=== PATIENT | female | born 1980 | race Caucasian/White ===

== ENCOUNTER 2022-06-13 08:43 | Emergency (ER) | payer BC, OTHER ==
[2022-06-13] MEDS ORDERED: Amoxicillin/Clavulanate K 875-125 MG Tab PO ONE ×2 (08:44→09:06)
[2022-06-13] MEDS ORDERED: Amoxicillin/Clavulanate K 875-125 MG Tab ONE (09:13)
== END 2022-06-13 09:19 | disposition home or self-care (01) ==
LOC: DL.ED 08:43
DX: H66.001 Acute suppurative otitis media without spontaneous rupture of ear drum, right ear (principal); J01.90 Acute sinusitis, unspecified; Z88.1 Allergy status to other antibiotic agents
CPT/HCPCS: 99283; A9270